=== PATIENT | female | born 1970 | race Hispanic/Latino ===

== ENCOUNTER 2017-07-31 16:04 | Emergency (ER) | payer SELFPAY ==
[~2017-07-31] VITALS: Ht 167.6 cm; Wt 57.8 kg
[~2017-07-31 16:04] MED LIST: ULTRAM50 M1 PO
[2017-07-31] MEDS ORDERED: BACTRIM1 TAB PO (16:13)
[2017-07-31] MEDS ORDERED: DOXYCYC MONO100 M1 PO (16:50)
[2017-07-31] MEDS ORDERED: PREDNISONE50 MG PO (16:50)
[2017-07-31 17:26] VITALS: BP 110/72
== END 2017-07-31 17:42 | disposition home or self-care (01) | DRG 603 ==
LOC: ED 16:04
DX: L03.012 Cellulitis of left finger (principal)

== ENCOUNTER 2017-09-15 15:34 | Emergency (ER) | payer SELFPAY ==
[~2017-09-15] VITALS: Ht 167.6 cm; Wt 58.0 kg
[~2017-09-15 15:34] MED LIST changes: +BACTRIM1 TAB PO; +DOXYCYC MONO100 M1 PO; +PREDNISONE50 MG PO
[2017-09-15 16:49] LABS: HEMATOCRIT 37.2 % (37.0-47.0); HEMOGLOBIN 12.6 g/dl (12.0-16.0); IMMATURE GRANULOCYTES 0.2 % (0.0-1.0); MEAN CELL VOLUME 88.6 fL CALC (80.0-100.0); MEAN CORPUSCULAR HGB CONC 33.9 g/L CALC (32.0-36.0); NEUT# 3.41 thou/uL (2.00-7.15); RED BLOOD COUNT 4.2 mill/uL (4.20-5.60); RED CELL DISTRI WIDTH 12.7 % (11.5-15.5)
[2017-09-15 16:55] LABS: ALBUMIN 4.4 g/dL (3.2-5.0); ALKALINE PHOSPHATASE 63 u/l (38-126); ANION GAP 15 (6-22 (CALC)); BILIRUBIN, TOTAL 1.2 mg/dL (0.0-1.4); BUN 17 mg/dL (7-17); BUN/CREATININE RATIO 24 (12-20 (CALC)); CALCIUM 9.5 mg/dL (8.4-10.2); CARBON DIOXIDE 23 mmol/l (22-30); CHLORIDE 105 mmol/l (95-108); CREATININE 0.7 mg/dL (0.5-1.0); GFR > 60 ML/MIN (>=60 (CALC)); GFR FOR AFR.AMER. > 60 ML/MIN (>=60 (CALC)); GLUCOSE 91 mg/dL (65-105); POTASSIUM 3.8 mmol/l (3.5-5.1); SGOT/AST 31 u/l (14-36); SGPT/ALT 32 u/l (9-52); SODIUM 140 mmol/l (137-146); TOTAL PROTEIN 7.5 g/dL (6.3-8.2)
[2017-09-15 17:00] LABS: URINE BILIRUBIN - DIPSTICK NEGATIVE (NEGATIVE); URINE BLOOD DIPSTICK NEGATIVE (NEGATIVE); URINE COLOR YELLOW; URINE GLUCOSE - DIPSTICK NEGATIVE (NEGATIVE); URINE KETONE 15 mg/dL (NEGATIVE); URINE NITRITE - DIPSTICK NEGATIVE (Negative); URINE PH 5.5 (4.5-8.0); URINE PROTEIN - DIPSTICK NEGATIVE (NEG-TRACE); URINE SPECIFIC GRAVITY 1.015; URINE UROBILINOGEN - DIPSTICK 0.2 E.U./dL (0.2)
[2017-09-15 17:06] LABS: MYOGLOBIN 24 ng/mL (0 - 62)
[2017-09-15 17:19] LABS: URINE CLARITY CLEAR; URINE LEUK ESTERASE SMALL (NEGATIVE)
[2017-09-15 17:28] LABS: URINE BACTERIA MANY hpf; URINE SQUAMOUS EPITHELIAL CELL FEW EPI/hpf (0-FEW)
[2017-09-15] MEDS ORDERED: CIPROFLOXACN500 MG PO (18:28)
[2017-09-15] MEDS ORDERED: PREVACID30 M1 PO (18:28)
[2017-09-15] MEDS ORDERED: ULTRAM50 M1 PO (18:50)
[2017-09-15 19:10] VITALS: BP 105/66
== END 2017-09-15 19:12 | disposition home or self-care (01) | DRG 313 ==
LOC: ED 15:34
PROVIDERS: Emergency Medicine
DX: R07.89 Other chest pain (principal); N39.0 Urinary tract infection, site not specified; R10.13 Epigastric pain